=== PATIENT | male | born 1970 | race African-American/Black ===

== ENCOUNTER 2020-06-20 14:19 | Emergency (ER) | payer MEDICAID ==
[~2020-06-20] VITALS: Ht 172.7 cm; Wt 79.0 kg
[2020-06-20] MEDS ORDERED: METHYLPREDNISOLONE SOD SUCC 125 MG/2 ML VIAL IV STA (14:37)
[2020-06-20] MEDS ORDERED: MAGNESIUM 2 G PREMIX 50 ML IV STA (14:37)
[2020-06-20] MEDS ORDERED: ALBUTEROL (0.083%) 2.5MG/3ML NEB HHN STA (14:37)
[2020-06-20] MEDS ORDERED: IPRATROPIUM BROMIDE (0.02%) 0.5MG/2.5ML NEB HHN STA (14:37)
[2020-06-20 15:13] LABS: CHLORIDE 109 mEq/L (98-107)
[2020-06-20 15:14] LABS: BASOPHILS % 0.9 % (0.0-2.0); HEMATOCRIT. 38.2 % (42.0-52.0); HEMOGLOBIN. 11.9 g/dL (14.0-18.0); LYMPHOCYTES % 23.7 % (20.0-50.0); MEAN CORPUSCULAR HEMOGLOBIN 24.3 pg (28.0-32.0); MEAN CORPUSCULAR VOLUME 78.5 fL (80.0-94.0); MEAN PLATELET VOLUME 7.5 fl (7.4-10.4); MONOCYTES % 9.2 % (2.0-8.0); NEUTROPHILS % 64.2 % (40.0-76.0); PLATELET 284 x1000/uL (130-400); RED BLOOD CELL COUNT 4.88 mill/uL (4.7-6.1); RED CELL DISTRIBUTION WIDTH 19.8 % (11.6-14.6)
[2020-06-20 16:09] VITALS: BP 141/75
== END 2020-06-20 16:37 | disposition home or self-care (01) ==
LOC: ER 14:19
DX: J44.1 Chronic obstructive pulmonary disease with (acute) exacerbation (principal); I10 Essential (primary) hypertension; J45.909 Unspecified asthma, uncomplicated
CPT/HCPCS: 36415; 71045; 80053; 83880; 84484; 85025; 93005; 96365; 96375; 99285; J2930; J3475; Z7610